=== PATIENT | female | born 2000 | race Caucasian/White ===

== ENCOUNTER 2022-10-19 12:34 | Emergency (ER) | payer MEDICAID, OTHER ==
[~2022-10-19] VITALS: Ht 157.5 cm; Wt 45.5 kg
[2022-10-19 12:51] VITALS: BP 122/81; PULSE 94; RESP 18; TEMP 98.2; O2SAT 100
[2022-10-19 14:26] LABS: CLARITY URINE CLEAR (CLEAR); COLOR URINE YELLOW (YELLOW); GLUCOSE URINE NEGATIVE (NEGATIVE); KETONES URINE NEGATIVE (NEGATIVE); LEUKOCYTE ESTERASE URINE 3+ (NEGATIVE); NITRITE URINE POSITIVE (NEGATIVE); OCCULT BLOOD URINE NEGATIVE (NEGATIVE); PROTEIN URINE NEGATIVE (NEGATIVE); SPECIFIC GRAVITY URINE 1.011 (1.005-1.030)
[2022-10-19] MEDS ORDERED: CEPH500C2 MT (14:40)
[2022-10-19] MEDS ORDERED: PYR200 MT (14:40)
[2022-10-19 15:33] LABS: BACTERIA URINE 3+; SQUAMOUS EPITHELIAL CELL URINE 1+ /lpf (RARE/1+)
[2022-10-19 15:34] LABS: RBC URINE NONE SEEN /hpf (0-2)
== END 2022-10-19 15:15 | disposition home or self-care (01) ==
LOC: ER 13:06
DX: N30.90 Cystitis, unspecified without hematuria (principal)
CPT/HCPCS: 81003; 81025; 99283

== ENCOUNTER 2022-10-25 13:09 | Emergency (ER) | payer MEDICAID, OTHER ==
[~2022-10-25] VITALS: Ht 157.5 cm; Wt 45.0 kg
[~2022-10-25 13:09] MED LIST: CEPH500C2 MT; PYR200 MT
[2022-10-25 13:14] VITALS: BP 123/87; RESP 18; TEMP 98.1; O2SAT 100
[2022-10-25 13:34] VITALS: PULSE 99
[2022-10-25] MEDS ORDERED: CEFP100T8 MT (13:39)
== END 2022-10-25 16:02 | disposition home or self-care (01) ==
LOC: ER 13:09
DX: N39.0 Urinary tract infection, site not specified (principal)
CPT/HCPCS: 99281; 99283

== ENCOUNTER 2023-07-12 05:11 | Emergency (ER) | payer OTHER ==
[~2023-07-12] VITALS: Ht 157.5 cm; Wt 45.0 kg
[~2023-07-12 05:11] MED LIST changes: +CEFP100T8 MT
[2023-07-12 05:27] VITALS: O2SAT 100
[2023-07-12 05:42] LABS: BASOPHILS % 0.5 % (0.0-2.0); EOSINOPHILS % 3.4 % (0.0-5.0); HEMATOCRIT. 41.9 % (36.0-48.0); HEMOGLOBIN. 14.3 g/dL (12.0-16.0); LYMPHOCYTES % 29.4 % (20.0-50.0); MEAN CORPUSCULAR HEMOGLOBIN 31.2 pg (28.0-32.0); MEAN CORPUSCULAR HGB CONC 34.2 g/dL (31.0-37.0); MEAN PLATELET VOLUME 10.5 fl (7.4-10.4); MONOCYTES % 7.1 % (2.0-8.0); NEUTROPHILS % 59.6 % (40.0-76.0); PLATELET 195 x1000/uL (130-400); RED CELL DISTRIBUTION WIDTH 12.9 % (11.6-14.6); WHITE BLOOD COUNT 7.4 x1000/uL (4.5-11.0)
[2023-07-12 05:51] LABS: CHLORIDE 103 mEq/L (98-107); POTASSIUM 3.9 mEq/L (3.5-5.1); SODIUM 137 mEq/L (136-145)
[2023-07-12 05:52] LABS: CALCIUM 9.3 mg/dL (8.7-10.4); CARBON DIOXIDE 27 mEq/L (21-32)
[2023-07-12 05:57] LABS: CREATININE 0.8 mg/dL (0.6-1.0); GLUCOSE 99 mg/dL (70-105); UREA NITROGEN BLOOD 12 mg/dL (9-23)
[2023-07-12 05:59] LABS: ALANINE AMINOTRANSFERASE 14 IU/L (10-49); ALBUMIN 4.8 g/dL (3.2-4.8); ASPARTATE AMINOTRANSFERASE 18 IU/L (<34); BILIRUBIN DIRECT 0.5 mg/dL (<=3.0); BILIRUBIN TOTAL 1.7 mg/dL (0.1-1.0)
[2023-07-12 06:00] LABS: PROTEIN TOTAL 7.9 g/dL (6.0-8.3)
[2023-07-12 06:13] LABS: CLARITY URINE CLOUDY (CLEAR); COLOR URINE DARK YELLOW (YELLOW); GLUCOSE URINE NEGATIVE (NEGATIVE); KETONES URINE TRACE (NEGATIVE); LEUKOCYTE ESTERASE URINE 1+ (NEGATIVE); NITRITE URINE POSITIVE (NEGATIVE); OCCULT BLOOD URINE NEGATIVE (NEGATIVE); PH URINE 5.5 (4.5-8.0); PROTEIN URINE NEGATIVE (NEGATIVE); SPECIFIC GRAVITY URINE 1.024 (1.005-1.030)
[2023-07-12 06:34] LABS: BACTERIA URINE 4+; RBC URINE 0-2 /hpf (0-2); SQUAMOUS EPITHELIAL CELL URINE 2+ /lpf (RARE/1+)
[2023-07-12] MEDS ORDERED: POLY17PO3 PO (08:32)
[2023-07-12] MEDS ORDERED: NITR100C PO (08:32)
[2023-07-12] MEDS: LACTULOSE 20G/30ML UDC PO ONE (08:42)
[2023-07-12 08:47] VITALS: BP 122/82; PULSE 86; RESP 16; TEMP 98.5
== END 2023-07-12 08:50 | disposition home or self-care (01) ==
LOC: ER 05:11
DX: K59.00 Constipation, unspecified (principal); N39.0 Urinary tract infection, site not specified; Z79.899 Other long term (current) drug therapy
CPT/HCPCS: 36415; 80048; 80076; 81003; 81025; 85025; 87077; 87186; 99283